=== PATIENT | male | born 1945 | race Caucasian/White ===

== ENCOUNTER 2022-03-09 09:02 | Outpatient (CLI) | payer MEDICARE, SELFPAY ==
--- NOTE | 2022-03-09 09:15 | CRLHL7_ITS ---
For Patients: As a result of the Cures Act, medical imaging exams and procedure reports are released immediately into your electronic medical record. You may view this report before your referring provider. If you have questions, please contact your health care provider. INDICATION : Suspicious exophytic nodule arising from the inferior isthmus and indeterminate nodule lower pole left thyroid lobe. TECHNIQUE : Fine needle aspiration of thyroid nodule x2. Comparison : CT chest 02/16/2022. Ultrasound thyroid 02/28/2022. FINDINGS : PROCEDURE: After the informed consent and time-out, multiple fine needle aspirations were obtained from the thyroid nodule arising from the inferior isthmus and from the nodule within the lower pole of the left thyroid lobe. Fine needle performed. 25 gauge needles were used. Lidocaine was used for local anesthesia. The preliminary cytology was adequate for interpretation. Real-time imaging was used for guidance and needle placement. Post imaging ultrasound demonstrates no immediate complication. IMPRESSION : Successful fine needle aspiration x2 of thyroid nodules. Dictated by Laurent Savage MD @ 03/09/2022 10:38:13 AM (Electronically Signed)
== END 2022-03-09 09:03 | disposition home or self-care (01) ==
PROVIDERS: PCP Family Medicine; Visit Provider Family Medicine
DX: E04.1 Nontoxic single thyroid nodule (principal)
CPT/HCPCS: 10005; 10006; 76942; 88173

== ENCOUNTER 2022-05-16 11:54 | Outpatient (CLI) | payer MEDICARE, SELFPAY ==
--- OUTSIDE RECORDS SUMMARY | 2022-05-16 11:58 | XMS_ITS | Encounter Summary ---
:1945 Author Care Team Providers Name Role Phone Nimesh Orourke MD Primary Care Provider [phone] Reason for Visit Follow up - Review Pathology Results; Te marlo Visit Assessment and Plan Assessment Note Of note a total of 20 minutes was spent : preparing to see the patient by reviewing records, images, and laboratory data; obtaining/reviewing separately obtained history; performing physical examination , counseling and educating patient/famil y/caregiver; ordering appropriate medications, labs, imaging or procedures; documenting the clinical encounter; and coordination of care. 1. Raised prostate specific antigen - Now s/p TRUS biopsy - Pathology with Rod 4+4 inspector watch train 2. Malignant tumor of prostate - Rod Grade 4+4 inspector watch train - Will complete staging work up includin g CT A/P and Bone Scan - Brother had primary radiotherapy, so m ore interested in that course of action if possible. Will discuss further once imaging available. ? CT, abdomen + pelvis, w/ contrast ? NM, bone scan, whole body 3. Family history of prostate cancer - As above Discussion Note: None recorded.Patient educational handouts: No information available. Plan of Care Reminders Provider Appointments None recorded. ? ? Lab None recorded. ? ? Referral None recorded. ? ? Procedures None recorded. ? ? Surgeries None recorded. ? ? Imaging CT, Abdomen + Pelvis, W/ 05/03/2022 [facility] Contrast Radiology Depart ment ? NM, Bone Scan, Whole Body 05/03/2022 [facility] Radiology Depart ment Medications Name Start Date ? ? aspirin 81 mg tablet,delayed release ? Take 1 tablet every day by oral route. omeprazole ? Medications Administered None recorded. Vitals Height Weight BMI 5 ft 10.5 in 141 lbs 19.9 kg/m2 Results Lab Results None recorded. Allergies Code Code System Name Reaction Severity Onset NKDA ? ? ? Problems None recorded. Procedures Date Name Performed by ? ? Reversal of Vasectomy Information not av ailable ? Vasectomy Information not avai lable 05/03/2022 CT, Abdomen + Pelvis, W/ Contrast [facility] Radiology Department [address] [place] [address] (Work Place) 05/03/2022 NM, Bone Scan, Whole Body [facility] Radiology Department [address] [place] [address] (Work Place) Vaccine List Vaccine Type COVID-19, mRNA, LNP-S, PF, 30 mcg/0.3 mL dose ([facility]) 11/27/2020 12/18/2020 07/12/2021 COVID-19, mRNA, LNP-S, PF, 30 mcg/0.3 mL dose, drake-sucrose ([facility]) 01/03/2022 pneumococcal conjugate PCV 13 06/12/2014 pneumococcal polysaccharide PPV23 03/19/2018 Social History Tobacco Smoking Status Former Smoker What was the date of your most recent 05/03/2022 tobacco screening? What is your level of alcohol consumption? Moderate When did you quit smoking? 16+yearssincelastcigarette Notes : 2000 Family History Relation Problem Onset Age of Age Notes Father Family history of cancer of (No Information) N/A (No Notes) colon Brother Family history of prostate (No Information) N/A (No Notes) cancer Functional Status Unknown. Past Encounters 05/03/2022 Raised Prostate Specific Antigen; Malign ant Tumor of Prostate; Family History of Prostate Cancer Matteo Bah MD: [address] [place] [address], Ph. 04/12/2022 Raised Prostate Specific Antigen Matteo Bah MD: [address] [place] [address], Ph. History of Present Illness Note: <div>Mr. Aleman is a pleasant 76 year old gentleman who is referred to me byhis primary care provider, Dr. Nimesh Orourke , regarding elevated PSA. Patient has undergone PSA screening as part of his annual well visit and has been noted to be elevated. </div><div> </div><div>Family history of prostate cancer: Yes, brother</div><div> </div><div>[facility] prostate cancer risk assessment tool: 46% chance of negative biopsy, 24% risk of low-grade prostate cancer, 30% risk of high-grade prostate cancer.</div><div> </div><div>PSA kinetics:</div><div>-20.82 ng/mL 2021</div><div>- 2.97 ng/mL 2014</div><div>
</div><div>04/12/2022:</div><div>Here for follow-up elevated PSA, transrectal ultrasound-guided biopsy of the prostate. All questions answ ered.</div><div>
</div><div>05/03/2022:</div><div>Here for follow-up elevated PSA s/p TRUS biopsy. Here for pathology review.</div><div>
</div><div>This visit was conducted by telephone due to the COVID-19 crisis. Prior to conducting our telephone visit, the patient was apprised of the risks, benefits and alternatives to telephone visits including but not limited to poor audio quality, interrupted visits due to technological limitations, delays in medical evaluation and treatment due to deficiencies or failures of equipment, failure of security protocols resulting in a breach of privacy of personal medical information kiana lack of access to complete medical records resulting in not fully informed decisions. Also, because of the COVID-19 pandemic, it was not possible for the patient to sign the privacy regulations, HIPAA release and assignment of benefits forms. The patient was given the opportunity to ask questions about these policies and gave verbal acknowledgement and approval of these policies as well as to hold this meeting by telephone. Lastly, the patient agreed to allowing their medication history to be pulled from a national pharmacy database to facilitate and coordinate their care.</div> Review of Systems ? Comprehensive General Adult ROS Reported By: Patient Constitutional: Constitutional: no fever, no chills Eyes: Eyes: no dry eyes, no vision change, no irritation Endocrine: Endocrine: no fatigue, no in creased thirst Cardiovascular: Cardiovascular: no chest krunal n, no palpitations Integumentary: Skin: no rashes, no change i n skin color Respiratory: Respiratory: no wheezing, no cough, no shortness of breath Gastrointestinal: Gastrointestinal: no abdomin al pain, no nausea, no vomiting, no constipation, no GERD Musculoskeletal: Musculoskeletal: no neck krunal n, no back pain Neurologic: Neurologic: no tremor, no di zziness, no numbness, no headaches Genitourinary: Genitourinary: no incontinen ce, no difficulty urinating ENMT: Ears: no ear pain. Mouth/Thr oat: no sore throat Allergic/Immunologic: Allergy/Immunologic: no itch ing, no hives Hematologic/Lymphatic: Hematologic/Lymphatic no swo llen glands, no excessive bleeding Psychiatric: Psych: no hallucinations, (n ormal) sleep disturbances: mismatch of sleep / wake marie edule with lifestyle needs Physical Exam None recorded.
--- OUTSIDE RECORDS SUMMARY | 2022-05-16 11:58 | XMS_ITS ---
:1945 Author Care Team Providers Name Role Phone BENEDICT ARRIOLA MD Primary Care Provider [phone] Allergies Code Code System Name Reaction Severity Status Onset NKDA ? Medications Name Status Start Date Stop Date ? ? aspirin 81 mg tablet,delayed release Active ? Not available Take 1 tablet every day by oral route. ceftriaxone 1 gram solution for injection Completed ? 05/03/2022 Take 1 g by injection route. ketorolac 0.5 % eye drops Completed ? 2021 INSTILL ONE DROP IN SURGICAL EYE(S) TWI CE DAILY. START 2 DAYS PRIOR TO SURGERY OF OPERATIVE EYE, CONTINUE DIRECTED ofloxacin 0.3 % eye drops Completed ? 2021 INSTILL ONE DROP IN SURGICAL EYE(S) FOU R TIMES DAILY. START 2 DAYS PRIOR TO SURGERY CONTINUE DIRECTED omeprazole Active ? Not available prednisolone acetate 1 % eye drops,suspension Completed ? 03/29/2022 INSTILL ONE DROP IN SURGICAL EYE(S) FOU R TIMES DAILY. START 2 DAYS PRIOR TO SURGERY. CONTINUE DIRECTED. tamsulosin 0.4 mg capsule Completed ? 2021 TAKE ONE CAPSULE BY MOUTH EVERY DAY AFTER A MEAL Problems None recorded. Procedures Date Name Performed by ? ? Reversal of Vasectomy Information not av ailable ? Vasectomy Information not avai lable 05/03/2022 CT, Abdomen + Pelvis, W/ Contrast [facility] Radiology Department [address] [place] [address] (Work [address]) 05/03/2022 NM, Bone Scan, Whole Body [facility] Radiology Department [address] [place] [address] (Work Place) Results Lab Results Date Name Specimen Result Interpretation Description Value Range Status Address ? 02/09/2022 PSA, Serum or Plasma ? No observation recor ded. ? ? ? Past Encounters 05/03/2022 Raised Prostate Specific Antigen; Malign ant Tumor of Prostate; Family History of Prostate Cancer Matteo Bah MD: [address] [place] [address], Ph. 04/12/2022 Raised Prostate Specific Antigen Matteo Bah MD: [address] [place] [address], Ph. 03/29/2022 Raised Prostate Specific Antigen Matteo Bah MD: [address] [place] [address], Ph. Social History Tobacco Smoking Status Former Smoker Vaccine List Vaccine Type COVID-19, mRNA, LNP-S, PF, 30 mcg/0.3 mL dose ([facility]) 11/27/2020 12/18/2020 07/12/2021 COVID-19, mRNA, LNP-S, PF, 30 mcg/0.3 mL dose, drake-sucrose ([facility]) 01/03/2022 pneumococcal conjugate PCV 13 06/12/2014 pneumococcal polysaccharide PPV23 03/19/2018 Plan of Care Reminders Provider Appointments None recorded. ? ? Lab None recorded. ? ? Referral None recorded. ? ? Procedures None recorded. ? ? Surgeries None recorded. ? ? Imaging None recorded. ? ? Vitals 05/03/2022 08:45AM ESTABLISHED PHONE VISIT 15 Height Weight BMI 5 ft 10.5 in 141 lbs 19.9 kg/m2 04/12/2022 04:00PM TRUS 30 Height Weight BMI 5 ft 10.5 in 141 lbs 19.9 kg/m2 03/29/2022 02:00PM NEW PATIENT 20 Height Weight BMI 5 ft 10.5 in 141 lbs 19.9 kg/m2
--- OUTSIDE RECORDS SUMMARY | 2022-05-16 11:59 | XMS_ITS | Clinical Summary ---
:1945 Author Organization [facility] [place] [address] Care Team Providers Name Role Phone Nimesh Orourke MD Primary Care Provider [phone] Allergies No known active allergies Medications Medication Sig Dispensed Refills Start Date End Date Status omeprazole (PRILOSEC) Take 1 capsule by 30 capsule 11 0 Active 20 mg capsule mouth once daily before a meal. multivitamin-folic Take 1 tablet by 0 06/20/2011 Active acid 0.4 mg (MULTIPLE mouth once daily. VITAMIN) tablet aspirin enteric coated Take 1 tablet by 0 06/20/2011 Active 81 mg tablet mouth once daily with a meal. betamethasone APPLY TOPICALLY 45 g 0 08/02/2020 Active dipropionate 0.05% TO AFFECTED (DIPROSONE 0.05% AREA(S) TWICE CREAM) 0.05 % DAILY NEEDED. 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 Take 30min to 4 hours before sexual activity. Max 100mg/24hr. Active Problems Problem Noted Date Weight loss 01/17/2022 Neck pain 01/17/2022 Chronic nonintractable headache 01/17/2022 Protein-calorie malnutrition, unspecified severity Adjustment disorder 01/24/2021 Closed nondisplaced fracture of neck of fifth metacarp al bone of right 09/19/2018 hand with routine healing Obstructive sleep apnea 01/03/2017 Hypersomnolence 10/25/2016 Diverticulosis of colon (without mention of hemorrhage ) 05/07/2013 Colon polyp 02/23/2010 Overview: Colonoscopy 02/2010 polyps repeat in 3 ye ars Colonoscopy 05/2013 polyp repeat in 5 ye ars Colonoscopy 04/2018 polyp, repeat in 5 ye ars Encounters Date Type Specialty Care Team Description 04/12/2022 Orders Only Scanner <No scans attac hed> 03/22/2022 Telephone Nimesh Orourke Res ults MD 03/14/2022 Orders Only Nimesh Orourke, <No scans attached> 03/09/2022 Orders Only Scanner <No scans attac hed> 03/09/2022 Orders Only Scanner <No scans attac hed> 03/09/2022 Lab Requisition Unknown, Doctor 03/08/2022 Hospital Encounter Nimesh Orourke MD Krogman, Brandon, PT Discharge Summary - Luis Lee, PT - 03/08/2022 8:00 AM CDT DISCHARGE NOTE Start of Service: 02/22/22 Last date of service: Therapy Completed: No Reason Therapy Not Completed : Unknown - used for patients that do not complete their care or return the therapist's call for a status update Goal Status: The status of p atient? s goals cannot be assessed at this time due to patient not returning. 03/08/2022 Travel 03/01/2022 Hospital Encounter Momo Orourke MD Krogman, Brandon, PT 03/01/2022 Telephone Nimesh Orourke MD Follow Up 02/28/2022 Ancillary Procedure 02/28/2022 Travel 02/24/2022 Office Visit Nimesh Orourke MD Follow Up (results) 02/24/2022 Travel 02/22/2022 Hospital Encounter Momo Orourke MD Neck pain Luis Lee, PT 02/22/2022 Travel 02/16/2022 Ancillary Procedure 02/16/2022 Telephone Nimesh Orourke MD Results 02/16/2022 Travel from Last 3 Months Immunizations Name Administration Dates Next Due AMB Influenza, IIV3 (Age >=3 06/01/2008 years)(Flu Clinic Only) COVID-19 vaccine ([employer]Fire 07/12/2021 30mcg/0.3mL) PF, MDV Influenza Virus, Unspecified 05/13/2016 Influenza, High-dose Inactivated 05/07/2018, 05/22/2017, 03/2016, 04/23/2015, 04/28/2014 Influenza, IIV3 (Age 6-35 mos) 05/11/2009 Influenza, IIV3 (Age >=3 years) 05/16/2011, 05/09/2010 Influenza, IIV4 05/22/2017 Influenza, Inactivated AIIV4 (Age 65+ 07/12/2021, 08/02/2020 Years) Preserv Free Influenza, Inactivated IIV3 (Age 65+ 05/07/2018 Years) Preserv Free Pneumococcal Poly,23-Valent 03/19/2018 (Pneumovax) Pneumococcal conj 13-Valent (Prevnar 06/12/2014 13) Td (Age >=7 Years) 03/06/2005, 04/01/2004 Td, Preservative Free (age >= 7 04/23/2015 Years) Family History Medical History Relation Name Comments Cancer-colon Father Cancer-prostate Neg. 1 Heart Disease Neg. 2 Diabetes Neg. 3 Anesthesia Problem No Family History Relation Name Status Comments Father Neg. 1 Neg. 2 Neg. 3 Social History Tobacco Use Types Packs/Day Years Used Date Former Smoker Quit: 08/06/19 Smokeless Tobacco: Never Used Tobacco Cessation: Counseling Given: Yes Alcohol Use Standard Drinks/Week Comments Yes 0 (1 standard drink = 0.6 oz pure alcoho l) occasional Alcohol Habits Answer Date Recorded How often do you have a drink containing alcohol? Monthly or less 04/21/2019 How many drinks containing alcohol do you have on a 1 or 2 04/21/2019 typical day when you are drinking? How often do you have six or more drinks on one Never 04/21/2019 occasion? Comment: Not asked Sex Assigned at Date Recorded Not on file Obstetrics History Last Filed Vital Signs Vital Sign Reading Time Taken Comments Blood Pressure 132/75 02/24/2022 9:59 AM CDT Pulse 69 02/24/2022 9:46 AM CDT Temperature 36 ??C (96.8 ??F) 05/06/2021 10:57 AM CDT Respiratory Rate 20 09/19/2018 9:05 AM [employer] Oxygen Saturation 98% 02/24/2022 9:46 AM CDT Inhaled Oxygen Concentration - - Weight 63.2 kg (139 lb 6.4 oz) 02/24/2022 9:46 AM CDT Height 177.2 cm (5' 9.76) 08/08/2021 8:37 AM [employer] Body Mass Index 20.14 08/08/2021 8:37 AM [employer] Plan of Treatment Upcoming Encounters Date Type Specialty Care Team Description 05/16/2022 Orders Only Brandy Barney 05/16/2022 Orders Only Brandy Barney Health Maintenance Due Date Last Done Comments Tdap 10/05/1958 Zoster (shingles) series for age 0310/05/1997 50+ (1 of 2) Medicare Wellness for age 65+ 06/12/2015 06/12/2014 Lipids for age 45-75 06/20/2019 06/20/2014, 03/17/2010, 10/22/2008 COVID-19 vaccine series (5 - 02/28/2022 01/03/2022, 021, Booster for Pfizer series) 12/18/2020, Additiona l history exists Depression screening for age 12+ 03/08/2022 03/08/2021, , 10/12/2020, Additional history exists Influenza for age 65+ 04/06/2022 07/12/2021, 08/02/2020, 05/07/2018, Additional history exists BMI (ht and wt on same day) for 08/08/2022 08/08/2021, 10/0 08/2020, age 18+ 04/21/2019, Additional history exists Colonoscopy through age 75 04/09/2023 04/09/2018, 8, 05/07/2013, Additional history exists Tetanus booster 04/23/2025 04/23/2015, 03/06/2005, 04/01/2004 Hepatitis C screening for age Completed 04/23/2015 18-79 Pneumococcal series for age 65+ Completed 03/19/2018, 11/0 02/2014 AAA screening age 55-77 Completed 02/16/2022 Procedures Procedure Name Priority Date/Time Associated Diagnosis Comme nts SCAN-OPERATIVE/PROC 04/12/2022 12:00 AM R esults for this EDURE REPORT CDT procedure are i n the results section. LAB TRACKING EVENT Routine 03/09/2022 9:50 AM CDT PATH FNA CYTOLOGY Routine 03/09/2022 9:50 AM Resu lts for this ASP CYTOLOGY CDT procedure are i n the results section. SCAN-LABORATORY 03/09/2022 12:00 AM Resul ts for this REPORT CDT procedure are i n the results section. US FNA BIOPSY W Routine 03/09/2022 12:00 AM Multiple thyroid R esults for this IMAGING GUIDANCE CDT nodules procedure a re in the results section. SCAN-OPERATIVE/PROC 03/09/2022 12:00 AM R esults for this EDURE REPORT CDT procedure are i n the results section. US Routine 02/28/2022 4:11 PM Thyroid mass Results f or this THYROID/PARATHYROID CDT procedur e are in the results section. CT CHEST ABDOMEN Routine 02/16/2022 11:24 AM Weight loss Resu lts for this PELVIS W CDT procedure are i n the results section. from Last 3 Months Results SCAN-OPERATIVE/PROCEDURE REPORT (04/12/2022 12:00 AM CDT) Narrative This result has an attachment that is no t available. Scanner OTHER LAB TRACKING EVENT (03/09/2022 9:50 AM CDT) Specimen Anatomical Collection Method Collection Time Receive d Time (Source) Location / / Volume Laterality Other (Other) Client Collect / 03/09/2022 9:50 AM 11/2021 2:42 Unknown CDT PM CDT Doctor Unknown LAB BILL ONLY Performing Organization Address City/State/ZIP Code Phon e Number [facility] [address] [place] [address] LABORATORY-CENTRAL 2000 LABORATORY PATH FNA CYTOLOGY ASP CYTOLOGY (03/09/2022 9:50 AM CDT) Component Value Ref Test Analysis Performed At [facility] gist Range Method Time Signature Case Report Medical Cytology Report ? Case: [id number] ? 03/10/2022 [facility] Authorizing Provider: ??Unkn own, Doctor ?Collected: ? 03/09/2022 0950 ? 10:04 AM HEAL TH Ordering Location: ? [facility] CENTRAL LAB ?Received: ?03/09/2022 1620 ? CDT [place] Pathologist: ? Sole Coates MD ? ENTRAL Specimens: ?? A) - Thyroid I sthmus, inferior ? LABORATORY ? B) - Left Thyroid ? Final A) THYROID, ISTHMUS, ULTRASOUND GUIDED FINE NEEDLE ASP IRATION: 03/10/2022 [facility] Electronically Diagnosis 1. Benign thyroid nodule 10:04 AM HEALT H signed by Jaxon 2. Negative for malignancy CDT LAB MARY Li MD on 3. See comment ENTRAL 022 at LABORATORY 10:04 AM B) THYROID, LEFT, ULTRASOUND GUIDED FINE NEEDLE ASPIRATION: 1. Benign thyroid nodule 2. Negative for malignancy 3. See comment Comment A,B) The risk of 03/10/2022 [facility] malignancy in 10:04 AM HEALTH the follow-up of CDT LABORATORY-C lesions with ENTRAL this cytologic LABORATORY appearance is low (0-3%). Clinical and radiologic correlation is advised, with repeat sampling recommended for any suspicious or enlarging lesion at this site. Clinical Mr. Aleman is a 76 y.o. with multiple thyroid nodules. 03/10/2022 [facility] Information Targeted nodules: 10:04 AM HEALTH 1. Inferior left thyroid measures 3.1 cm (TR3) CDT LABORATORY-C 2. Mass/nodule extends from the inferior left thyroid (TR4) ENTRAL LABORATORY Gross 03/10/2022 [facility] Description A) Received identified as I nferior thyroid isthums is a fine needle aspirate specimen. 10:04 AM HEALTH CDT LABORATORY-C The following were received: E NTRAL ? -6 Air dried slides LAB ORATORY ? -1 CytoLyt vial ? -1 FNA Protect vial The following were prepared from the specimen submitted: ? -6 Diff-Quik stained slides ? -1 Papanicolaou stained ThinPrep slide B) Received identified as Left thyroid is a fine nee dle aspirate specimen. The following were received: ? -6 Air dried slides ? -1 CytoLyt vial ? -1 FNA Protect vial The following were prepared from the specimen submitted: ? -6 Diff-Quik stained slides ? -1 Papanicolaou stained ThinPrep slide Microscopic Specimen adequacy: Adequate for interpretation. 03/10/2022 [facility] Description 10:04 AM HEALTH All slides were reviewed. Th e microscopic appearance substantiates the diagnosis. CDT LABORATORY-C ENTRAL LABORATORY Additional Cytology is screened at [facility], Central Laboratory - [address] [facility] [address] [address] and [facility] - [address], [place] [address] and 03/10/2022 [facility] Information [facility] - [address] [place] [address] 10:04 [facility] CDT LABORATORY-C ENTRAL Interpreted at [facility] Laboratory, Central Laboratory - [address], [place] [address] LABORATORY Specimen (Source) Anatomical Collection Method Collection Time Re ceived Time Location / / Volume Laterality Aspirate (Thyroid 03/09/2022 9:50 022 4:20 Isthmus) AM CDT PM CDT Specimen obtained 03/09/2022 10:00 2021 4:20 by aspiration AM CDT PM CDT (specimen) (Left Thyroid) Doctor Unknown PATHOLOGY/CYTOLOGY Performing Organization Address City/State/ZIP Code Phon e Number [facility] [address] [place] [address] LABORATORY-CENTRAL 2000 LABORATORY SCAN-OPERATIVE/PROCEDURE REPORT (03/09/2022 12:00 AM CDT) Narrative This result has an attachment that is no t available. Scanner OTHER SCAN-LABORATORY REPORT (03/09/2022 12:00 AM CDT) Narrative This result has an attachment that is no t available. Scanner OTHER US FNA BIOPSY W IMAGING GUIDANCE (03/09/2022 12:00 AM CDT) Anatomical Region Laterality Modality Ultrasound Narrative This result has an attachment that is no t available. Nimesh Orourke MD US US THYROID/PARATHYROID (02/28/2022 4:11 PM CDT) Anatomical Region Laterality Modality THYROID Ultrasound Specimen (Source) Anatomical Collection Method Collection Time Re ceived Time Location / / Volume Laterality 03/01/2022 1:20 PM CDT Impressions 03/01/2022 1:20 PM CDT There are 2 inferior left thyroid nodules. One nodule in the inferior left thyroid measures 3.1 cm and is TR 3 with recommendation for FNA. Additional mass/nodule extends from the inferior left thyroid along the midline as seen on prior CT an d is TR4 with recommendation for FNA. Dictated by Neno Zamora MD @ Mar 01 ??1:20PM (Electronically Signed) ?? Narrative 03/01/2022 1:20 PM CDT For Patients: ??As a result of the Cures Act, medical imaging exams and procedure report s are released immediately into your [facility] medical record. ??You may view this report before your referring provider. ??If you have questions, please contact your health care provider. INDICATION: Thyroid mass seen on CT 02/16/2022. TECHNIQUE: Ultrasound thyroid with ortiz-scale and c olor Doppler analysis. COMPARISON: CT chest, abdomen, and pelvis 02/16/2022 . FINDINGS: Right lobe: 5.1 x 1.9 x 1.4 cm. Left lob e: 5.4 x 1.3 x 1.0 cm. ?? Nodules: 1. Right thyroid nodule measuring 11 x 1 0 x 7 mm. Nodule is ill-defined, isoechoic, with no echogenic foci and not overly suspicious. TR3. 2. Left thyroid mid to inferior nodule m easures 3.1 x 1.7 x 1.0 cm. Nodule is isoechoic and ill-defined wider than tall with no echogenic foci. TR3. 3. Additional mass/nodule at the inferio r midline left thyroid as seen on CT measures approximately 3 x 2.9 x 1.5 cm. Hypoechoic nodule wider than tall with no echogenic foci. TR4. Echotexture of the thyroid parenchyma is normal. Color Doppler analysis demonstrates normal vascularity. The isthmus is normal measuring 2 mm. No evidence of lymphadenopathy or parath yroid mass. Procedure Note Neno Zamora MD - 03/01/2022Form atting of this note might be different from the original. For Patients: As a result of the ntury Cures Act, medical imaging exams and procedure reports are released immediately into your electronic medical record. You may view this report before your referring provider. If you have questions, please contact yo health care provider. INDICATION: Thyroid mass seen on CT 02/16/2022. TECHNIQUE: Ultrasound thyroid with ortiz-scale and c olor Doppler analysis. COMPARISON: CT chest, abdomen, and pelvis 02/16/2022 . FINDINGS: Right lobe: 5.1 x 1.9 x 1.4 cm. Left lob e: 5.4 x 1.3 x 1.0 cm. Nodules: 1. Right thyroid nodule measuring 11 x 1 0 x 7 mm. Nodule is ill-defined, isoechoic, with no echogenic foci and not overly suspicious. TR3. 2. Left thyroid mid to inferior nodule m easures 3.1 x 1.7 x 1.0 cm. Nodule is isoechoic and ill-defined wider than tall with no echogenic foci. TR3. 3. Additional mass/nodule at the inferio r midline left thyroid as seen on CT measures approximately 3 x 2.9 x 1.5 cm. Hypoechoic nodule wider than tall with no echogenic foci. TR4. Echotexture of the thyroid parenchyma is normal. Color Doppler analysis demonstrates normal vascularity. The isthmus is normal measuring 2 mm. No evidence of lymphadenopathy or parath yroid mass. IMPRESSION: There are 2 inferior left thyroid nodule s. One nodule in the inferior left thyroid measures 3.1 cm and is TR 3 with recommendation for FNA. Additional mass/nodule extends from the inferior left thyroid along the midline as seen on prior CT and is TR4 w ith recommendation for FNA. Dictated by Neno Zamora MD @ Mar 01 1:20PM (Electronically Signed) Nimesh Orourke MD US CT CHEST ABDOMEN PELVIS W (02/16/2022 11:24 AM CDT) Anatomical Region Laterality Modality Abdomen, Pelvis, AORTA, LIVER, SPLEEN, CHEST Computed Tomography Specimen (Source) Anatomical Collection Method Collection Time Re ceived Time Location / / Volume Laterality 02/16/2022 4:31 PM CDT Narrative 02/16/2022 4:31 PM CDT For Patients: ??As a result of the Cures Act, medical imaging exams and procedure report s are released immediately into your [facility] medical record. ??You may view this report before your referring provider. ??If you have questions, please contact your health care provider. Indication: Weight loss Technique: Postcontrast CT chest, abdomen and pelvi s. Oral water and 100 cc Omnipaque 350 intravenous contrast administered. Please note that all CT scans at this [facility] use dose modulation, iterative reconstruction, and/or weight-based dosing when appropriate to reduce radiation dose to as low as reasonably achievable. Comparison: None Findings: In the chest, mild peripheral ill-define d densities within the right lower lobe, series 3, slice 56. No pleural effusion. There is complex nodule arising from the inferior thyroid measuring 2.8 cm. No m ediastinal, hilar or axillary adenopathy . Mild chronic appearing wedging of T6. Degenerative changes. No pleural effusion or pneumothorax. In the abdomen/pelvis, no suspicious int rahepatic mass. Gallbladder normal. Spleen unremarkable. Scarring at the anterior left kidney. Slight ectopic position of the right kidney. No hydronephrosis or s uspicious renal mass. Pancreatic calcifi cations. No biliary or pancreatic duct dilation. No evidence of a pancreatic mass. No retroperitoneal or mesenteric adenopathy. Bladder normal. Prostate is hetero geneous with calcifications and mass eff ect upon the bladder. No bowel obstruction, free air, free fluid or abscess. Impression: Sequela of chronic pancreatitis with mul tifocal pancreatic calcifications. 2.8 cm lesion arising from the inferior thyroid. Thyroid ultrasound recommended. Thyroid FNA will likely be recommended. Mild ill-defined peripheral densities wi thin the posterior right lower lobe are likely inflammatory or related to scarring. Mild chronic wedging of T6. Please note that all CT scans at this [facility] use dose modulation, iterative reconstruction, and/or weight-based dosing when appropriate to reduce radiation dose to as low as reasonably achievable. Dictated by Laurent Savage MD @ Feb 16 2 022 ??4:31PM (Electronically Signed) ?? Procedure Note Laurent Savage MD - 02/16/2022For matting of this note might be different from the original. For Patients: As a result of the ntury Cures Act, medical imaging exams and procedure reports are released immediately into your electronic medical record. You may view this report before your referring provider. If you have questions, please contact [facility] care provider. Indication: Weight loss Technique: Postcontrast CT chest, abdomen and pelvi s. Oral water and 100 cc Omnipaque 350 intravenous contrast administered. Please note that all CT scans at this [facility] use dose modulation, iterative reconstruction, and/or weight-based dosing when appropriate to reduce radiation dose to as low as reasonably achievable. Comparison: None Findings: In the chest, mild peripheral ill-define d densities within the right lower lobe, series 3, slice 56. No pleural effusion. There is complex nodule arising from the inferior thyroid measuring 2.8 cm. No mediastinal, hilar or axillary adenopathy. Mild chronic abe earing wedging of T6. Degenerative changes. No pleural effusion or pneumothorax. In the abdomen/pelvis, no suspicious int rahepatic mass. Gallbladder normal. Spleen unremarkable. Scarring at the anterior left kidney. Slight ectopic position of the right kidney. No hydronephrosis or suspicious renal mass. Pancreatic calcifications. N o biliary or pancreatic duct dilation. No evidence of a pancreatic mass. No retroperitoneal or mesenteric adenopathy. Bladder normal. Prostate is heterogeneous with calcifications and mass effect upon the bladder. No bowel obstruction, free air, free fluid or abscess. Impression: Sequela of chronic pancreatitis with mul tifocal pancreatic calcifications. 2.8 cm lesion arising from the inferior thyroid. Thyroid ultrasound recommended. Thyroid FNA will likely be recommended. Mild ill-defined peripheral densities wi thin the posterior right lower lobe are likely inflammatory or related to scarring. Mild chronic wedging of T6. Please note that all CT scans at this [facility] use dose modulation, iterative reconstruction, and/or weight-based dosing when appropriate to reduce radiation dose to as low as reasonably achievable. Dictated by Laurent Savage MD @ Feb 14 2 022 4:31PM (Electronically Signed) Nimesh Orourke MD CT from Last 3 Months Insurance Payer Benefit Plan / Subscriber ID Effective Dates Phone Addre ss Type Group WC WORKERS COMP [facility] [id number]-Prese [address] [address] [place] [address] MEDICARE PART A - MEDICARE PART A [id number] 2012-Presen ATTN: CLAIMS HB USE ONLY HB ONLY t [address] [place] [address] [facility] MR [id number] 2021-Presen [address] [address] [place] [address] Nimesh Aleman Workers Comp Self 1945 [address] [facility] (Home) [place] [phone] Mishel FLORES (Work) [id number] Care Teams [place] Relationship Specialty Start Date End Date Nimesh Orourke MD PCP - General 08/09/09 [address] [place] [address]
--- OUTSIDE RECORDS SUMMARY | 2022-05-16 11:59 | XMS_ITS | Encounter Summary ---
:1945 Author Care Team Providers Name Role Phone Nimesh Orourke MD Primary Care Provider [phone] Reason for Visit Elevated PSA or Prostate Nodule Assessment and Plan 1. Raised prostate specific antigen - We discussed the significance of an e levated PSA and its utility in screening for prostate cancer. We discussed that while the PSA may be elevated in some men due to benign causes such as trauma, rec ent sexual intercourse, urinary tract in fections, or recent instrumentation, it may also be indicative of underlying prostate cancer. We discussed that a PSA test alone is not sufficient to determine if prostate cancer is present and further testing is warranted. - Given the recent change in his PSA I shoshana white recommend we first repeat his PSA while controlling for potential confounding variables to confirm the elevation. - We then discussed the available option s for further evaluations. (1) One option would be to proceed with transrectal ultrasound with prostate needle biopsy. This allows for sampling of the prostate in areas where cancer is likely to be found. This will allow for det ection of underlying prostate cancer if it is present. We discussed the limitations of this including under sampling which may lead to under diagnosis. We also discussed the risks most notably bleeding to a degree enough to require interventi on (1-2.5%) and infection which may result in hospitalization (1-3%). We also discussed expected after effects of biopsy including temporary hematuria, blood per rectum, and hematospermia which are cons idered normal after this procedure. (2) A second option we discussed would b e to proceed first with an MRI of the prostate. This would allow for detection of underlying lesions of the prostate which are suspicious for cancer. This informa tion could then be utilized for ultrasou nd-MRI fusion biopsies which may result in improved detection of underlying prostate cancer and also facilitate roasterman surveillance for men in which low risk prostate cancers are identified. (3) We then discussed the role of adjunc tive testing in the form (4k score or ExoDx) to help better inform risk profile. While this does not tell a man whether he has prostate cancer this may be helpful in making a decision about whether to p roceed with a prostate biopsy. ? biopsy, prostate Discussion Note: None recorded.Patient educational handouts: No information available. Plan of Care Reminders Provider Appointments None recorded. ? ? Lab Biopsy, Prostate 03/29/2022 ? Referral None recorded. ? ? Procedures None recorded. ? ? Surgeries None recorded. ? ? Imaging None recorded. ? ? Medications Name Start Date ? ? aspirin [...] ailable ? Vasectomy Information not avai lable Vaccine List Vaccine Type COVID-19, mRNA, LNP-S, PF, 30 mcg/0.3 mL dose ([facility]) 11/27/2020 12/18/2020 07/12/2021 COVID-19, mRNA, LNP-S, PF, 30 mcg/0.3 mL dose, drake-sucrose ([facility]) 01/03/2022 pneumococcal conjugate PCV 13 06/12/2014 pneumococcal [...] Notes) cancer Functional Status Unknown. Past Encounters 03/29/2022 Raised Prostate Specific Antigen Matteo Bah MD: [id number] [place] [address], Ph. History of Present Illness Note: <div>Mr. Aleman is a pleasant 76 year old gentleman who is referred to me byhis primary care provider, Dr. Nimesh Orourke , regarding elevated PSA. Patient has undergone PSA screening as part of his annual well visit and has been noted to be elevated.

Family history of prostate cancer: None

[facility] prostate cancer risk assessment tool: 46% chance of negative biopsy, 24% risk of low- grade prostate cancer, 30% risk of high-grade prostate cance r.

PSA kinetics:
-20.82 ng/mL 2021</div><div>- 2.97 ng/mL 2014</div> Review of Systems ? Comprehensive General Adult [...] marie edule with lifestyle needs Physical Exam ? Brief Exam Reported By: Patient Male : Penis: no lesions, no discha rge. Scrotum: no swelling, no tenderness. Prostate: not enlarged, non- tender, hard / indurated; right lateral lobe firm compared to contralater al, fixed
--- NOTE | 2022-05-16 12:00 | CRLHL7_ITS ---
For Patients: As a result of the Century Cures Act, medical imaging exams and procedure reports are released immediately into your electronic medical record. You may view this report before your referring provider. If you have questions, please contact your health care provider. HISTORY: 76-year-old male. Initial staging for prostate cancer. TECHNIQUE: 24.9 millicuries of [id number] was injected intravenously. Delayed images of the skeleton were obtained in the anterior and posterior projections. Four additional oblique views of the pelvis were also obtained. FINDINGS: There is good uptake of activity by the skeleton. Mild uptake in the cervical, thoracic and lumbar spine, shoulders, right sternoclavicular joint, knees and feet has a pattern and appearance most characteristic of benign arthritic changes. No other significant bony abnormalities are identified. IMPRESSION: 1. There is no convincing evidence of skeletal metastases. 2. There are mild benign-appearing arthritic changes. Dictated by Gianni Wayne MD @ 05/16/2022 4:23:14 PM (Electronically Signed)
[2022-05-16 12:39] LABS: Creatinine* 0.8 mg/dL (0.5-1.5); Estimated Glomerular Filt Rate 93 ml/min
--- NOTE | 2022-05-16 13:00 | CRLHL7_ITS ---
For Patients: As a result of the Century Cures Act, medical imaging exams and procedure reports are released immediately into your electronic medical record. You may view this report before your referring provider. If you have questions, please contact your health care provider. Indication: MALIGNANT TUMOR OF PROSTATE Technique: Postcontrast CT abdomen and pelvis. 68 cc Isovue 370 intravenous contrast. Please note that all CT scans at this facility use dose modulation, iterative reconstruction, and/or weight-based dosing when appropriate to reduce radiation dose to as low as reasonably achievable. Comparison: 03/14/2018 Findings: Lung bases are clear. No intrahepatic lesion. Gallbladder normal. Slight ectopic position of the normal right kidney. Chronic deformity at the anterior left kidney. Adrenal glands normal. Normal spleen. Pancreatic calcifications. No adenopathy. Vascular calcifications. No bowel obstruction or free air. No free fluid or abscess. Prostate is heterogeneous with coarse calcifications. Normal bladder. Multilevel degenerative changes including multiple Schmorl`s nodes. No compression fracture or sclerotic lesion. Impression: No evidence of metastatic disease. Please note that all CT scans at this facility use dose modulation, iterative reconstruction, and/or weight-based dosing when appropriate to reduce radiation dose to as low as reasonably achievable. Dictated by Laurent Savage MD @ 05/16/2022 2:33:37 PM (Electronically Signed)
== END 2022-05-16 11:55 | disposition home or self-care (01) ==
LOC: NM 11:55
PROVIDERS: PCP Family Medicine; Visit Provider Urology
DX: C61 Malignant neoplasm of prostate (principal)
CPT/HCPCS: 36415; 74177; 78306; 82565; A9503; Q9967

== ENCOUNTER 2022-09-06 13:43 | Outpatient (CLI) | payer MEDICARE, SELFPAY | END 2022-09-06 13:44 | disposition home or self-care (01) | LOC: MRI 13:44 | PROVIDERS: PCP Family Medicine; Visit Provider Physician Assistant | DX: C61 Malignant neoplasm of prostate (principal) | CPT/HCPCS: 72195 ==